=== PATIENT | male | born 1985 | race Caucasian/White ===

== ENCOUNTER 2025-04-19 16:27 | Observation (INO) ==
--- NOTE | 2025-04-19 17:09 | Emergency Department Note ---
Impression & Plan Alcohol withdrawal syndrome, SARS-CoV-2 positive, Confusion ED Provider Note Provider: Higinio Hollis MD CHIEF COMPLAINT: Concern for alcohol withdrawal HISTORY OF PRESENT ILLNESS: Patient is a 39-year-old gentleman denies other medical history presenting here from the [facility] usp center evidently in custody there for evaluation with concerns for possible alcohol withdrawal. Facility medical staff had contacted charge nurse prior to arrival reported that they are concerned the patient was of alcohol withdrawal and was acting confused. Patient evidently been evaluated at [facility] earlier and had a workup and was discharged back to them after receiving a dose of phenobarbital by report. Patient himself is not a great historian. Interview conducted with formal translation services as his primary language is [place]an. Patient states he does not have any pain. He states he was drinking alcohol yesterday. He states he has been working with a psychologist. He states he is post to work at the [employer] today. Patient denies any nausea or vomiting. Reports his medications are amoxicillin and acetaminophen. Records from the usp center indicate the patient was taken to custody 4 days ago on Saturday. He does report he drinks beers at times but denies other drugs to me. Very difficult to get a clear idea of how much alcohol he may be having and again does not seem to be giving me a clear history of his incarceration as he obviously was not drinking alcohol yesterday as he was in usp. Patient denies a known history of seizure although guards at bedside question if he may have had a seizure-like event. Charge nurse states in her discussion with the medical staff just prior to him arriving here, they stated the patient had not had any seizures. Patient does report that he had some bandaging on his left arm. No trauma reported. PAST MEDICAL HISTORY: As noted above MEDICATIONS: Patient reports that he is taken acetaminophen and amoxicillin but difficult to truly ascertain SOCIAL HISTORY: [place]an-speaking, reports alcohol use but denies drug use PHYSICAL EXAM: GENERAL: alert in no acute distress on stretcher not obvious responding external stimuli. Guards at bedside. Seems a little bit fidgety. Head: normocephalic and atraumatic EYES: No injection, discharge or icterus. PERRL, EOMI. NECK: Trachea midline. Good range of motion ENT: Mucous membranes pink and moist. LUNGS: Airway patent. No retractions. Breath sounds clear with good air entry bilaterally. HEART: Regular rate and rhythm. No chest wall tenderness ABDOMEN: Soft and non-tender, without guarding or rebound. SKIN: Acyanotic, warm, dry, without rashes EXTREMITIES: Without swelling, tenderness or deformity NEUROLOGICAL: No focal deficits moving all extremities. No aphasia. No facial droop noted. Ambulatory. EK bpm. Normal sinus rhythm. No PVC or PAC. No acute ST segment elevation or depression with a QTc of 434. CONTINUOUS CARDIAC MONITORING: was ordered and showed a heart rate of 90s to 180s bpm in normal sinus rhythm to sinus tachycardia Patient's laboratory studies and imaging reviewed. Differential includes Alcohol intoxication, toxicologic, infection, hypoglycemia, electrolyte abnormalities, cardiac sources, intracerebral event, neurologic, trauma, psychiatric, as well as other pathologies. IMPRESSION/MEDICAL DECISION MAKING: The reported wound on his left forearm appears to be the priorly bandaged IV site from earlier. This does not appear infected although I did quickly cleaned it with chlorhexidine. Did not seem a focal deficit or any significant pain. No reported episodes of seizure in discussion with patient or them prior information from usp facility. Reportedly received phenobarbital at workup in [facility]. Firefighting Equipment Specialist here working to try to obtain these records for more information. Will obtain a CT of the head as well as basic blood work including alcohol level as he does hemoglobin tremulous, somewhat hypertensive, and a little bit confused. At times during the interview he changes subject and talking about drinking yesterday when he is in custody and wanting to go fishing. I am unclear if he is truly confused or if there may be some translation issues with the formal ham clerk and his dialect. In any event we will maintain a broad workup but he does not appear meningitic or septic. Given a small Ativan to help calm him as he states he was feeling a little bit nervous. Head CT without acute findings per radiology. Blood work here without leukocytosis or severe anemia. Laboratory studies without renal dysfunction very slight transaminitis but no bilirubin elevation a potassium of 2.9. IV potassium supplementation ordered. COVID-positive incidentally. Did not see me having significant respiratory or GI symptoms. Again does not appear meningitic here. Alcohol level undetectable. Does during course of care in the ER does become more tremulous and tachycardic. He is pulling at restraints some and discussed with guards strategies to try to minimize any injury to his arms from pulling at his restraints. Given send for significant occult use in the past given IV thiamine and folic acid and IV fluid. Again probably some overlap between agitation as well as alcohol withdrawal but given additional IV Ativan and later IV Valium given his vitals and symptoms. Trying to be cautious to avoid oversedation if he did receive a barbiturate earlier although still waiting records IV fluid as well as folate and thiamine was ordered. Will bring into the hospital for further care and the hospitalist team was contacted. Did discuss with the hospitalist team if he has continued significant tremors, hypertension, and tachycardia he may need ICU level care/phenobarbital. Records later do arrived showing received 260 mg IV phenobarbital at [facility] earlier today. DIAGNOSIS: Alcohol withdrawal, COVID-19 positive DISPOSITION: Hospitalist will evaluate Critical Care I have personally spent 37 minutes of critical care time in the direct management of this patient. This includes bedside care, interpretation of diagnostic studies, and testing, discussion with consultants, patient, and other required patient management activities. These 37 minutes is in excess of all separately billable procedures. Past Med/Surg History Problem List (Updated 04/19/25 @ 19:45 by Hamilton Deluna DO) Alcohol liver damage Hypokalemia due to inadequate potassium intake Alcohol use disorder Severe alcohol withdrawal delirium Confusion (Acute) SARS-CoV-2 positive (Acute) Alcohol withdrawal syndrome (Acute) Social History Smoking Status: Never smoker Preferred Language: [place]an Feels Safe at Home: Yes Allergies Allergies Allergy/AdvReac Type Severity Reaction Status Date / Time No Known Allergies Allergy Unverified 04/19/25 19:52 Home Meds Home Medications Medication Instructions Recorded Confirmed hydroxyzine pamoate 25 mg capsule 25 mg PO DAILY 04/19/25 04/19/25 hydroxyzine pamoate 50 mg capsule 50 mg PO DAILY 04/19/25 04/19/25 lorazepam 1 mg tablet 1 mg PO BID 04/19/25 04/19/25 lorazepam 1 mg tablet 1 mg PO TID 04/19/25 04/19/25 omeprazole 20 mg capsule,delayed 20 mg PO DAILY 04/19/25 04/19/25 release Results & Data (ED) Vital Signs Vital Signs - 24 hr 04/19/25 16:28 04/19/25 17:15 04/19/25 17:29 Temperature 37.7 C H Temperature Source Oral Pulse Rate 101 H 99 H Pulse Rate [Right Finger] 107 H Respiratory Rate 16 22 Respiratory Effort / Characteristics Non-Labored Spontaneous Non-Labored Spontaneous Respiratory Depth Normal Normal Blood Pressure 160/117 H Blood Pressure [Right Arm] 164/118 H Blood Pressure Mean 131 Blood Pressure Mean [Right Arm] 133 Pulse Oximetry 99 99 Oxygen Delivery Method Room Air Room Air Oxygen Flow Rate Sepsis Recent Fever Within 48 Hours No Sepsis New/Unexplained Change in Mental Status No Sepsis Action Taken by Nursing No Action Required 04/19/25 19:00 04/19/25 19:39 04/19/25 20:28 Temperature 36.3 C L Temperature Source Axillary Pulse Rate 102 H Pulse Rate [Right Finger] 143 H 104 H Respiratory Rate 26 H 15 18 Respiratory Effort / Characteristics Non-Labored Spontaneous Non-Labored Spontaneous Respiratory Depth Normal Normal Blood Pressure 150/99 H Blood Pressure [Right Arm] 185/131 H 156/116 H Blood Pressure Mean Blood Pressure Mean [Right Arm] 149 129 Pulse Oximetry 95 100 Oxygen Delivery Method Room Air Nasal Cannula Oxygen Flow Rate 2 Sepsis Recent Fever Within 48 Hours Sepsis New/Unexplained Change in Mental Status Sepsis Action Taken by Nursing Laboratory Data 04/19/25 16:57 04/19/25 16:57 Lab Results 04/19/25 04/19/25 Range/Units 16:57 17:21 WBC 7.17 (4.8-10.8) K/ul RBC 4.22 L (4.70-6.10) M/uL Hgb 13.4 L (14.0-18.0) g/dl Hct 37.9 L (42.0-52.0) % MCV 89.8 (80.0-100.0) fL MCH 31.8 (25.0-34.0) pg MCHC 35.4 (32.0-36.0) g/dL RDW Std Deviation 42.5 (36.4-46.3) fL RDW Coeff of Mireille 12.8 (11.5-14.5) % Plt Count 248 (130-400) K/uL MPV 10.8 (9.4-12.4) fL Immature Gran % (Auto) 0.3 % Neut % (Auto) 58.6 % Lymph % (Auto) 25.9 % Mason % (Auto) 13.0 % Eos % (Auto) 1.4 % Baso % (Auto) 0.8 % Neut # (Auto) 4.20 (1.40-6.50) K/uL Lymph # (Auto) 1.86 (1.20-3.40) K/uL Mason # (Auto) 0.93 H (0.11-0.59) K/uL Eos # (Auto) 0.10 (0.00-0.50) K/uL Baso # (Auto) 0.06 (0.00-0.20) K/uL Immature Gran # (Auto) 0.02 (0.01-0.20) K/uL Sodium 139 (136-145) mmol/L Potassium 2.9 L (3.5-5.1) mmol/L Chloride 103 (98-107) mmol/L Carbon Dioxide 25 (21-32) mmol/L Anion Gap 11 (3-11) BUN 13 (6-23) mg/dl Creatinine 0.83 (0.6-1.4) mg/dl Est Cr Clr Drug Dosing 98.1 ml/min eGFR 112.76 BUN/Creatinine Ratio 15.7 (10-20) Glucose 112 H (70-99(Fasting)) mg/dl Calcium 9.3 (8.6-10.3) mg/dl Magnesium 1.8 (1.7-2.4) mg/dl Total Bilirubin 0.8 (0.2-1.0) mg/dl AST 133 H (13-39) U/L ALT 138 H (7-52) U/L Alkaline Phosphatase 86 (34-104) U/L Troponin I High Sens 8.1 (0-20) pg/ml Total Protein 8.1 (6.0-8.3) gm/dl Albumin 4.7 (3.4-5.0) gm/dl Globulin 3.4 (2.5-4.0) gm/dl Albumin/Globulin Ratio 1.4 (0.9-2) TSH 1.184 (0.300-4.500) uIu/ml Salicylates < 3.0 L (3.0-30) mg/dl Acetaminophen < 3 L (10-30) ug/ml Ethyl Alcohol mg/dL < 10.0 (<10.0) mg/dl SARS-CoV-2, RNA, NAAT POSITIVE A (NEGATIVE) Administered Medications Discontinued Medications Diazepam (Diazepam 5 Mg/Ml 10ml Vial) 10 mg IV NOW STA Stop: 04/19/25 18:54 Last Admin: 04/19/25 19:04 Dose: 10 mg Documented By: KAY Potassium Chloride (K Jeremias / Wtr) 10 meq in 100 mls @ 100 mls/hr IV ONE ONE Stop: 04/19/25 19:09 Last Admin: 04/19/25 19:04 Dose: 100 mls/hr Documented By: KAY Thiamine HCl 100 mg/ Syringe 10 mls @ 2 mls/min IV NOW STA Stop: 04/19/25 18:14 Last Admin: 04/19/25 18:49 Dose: 2 mls/min Documented By: KAY Folic Acid 1 mg/ Syringe 10 mls @ 5 mls/min IV NOW STA Stop: 04/19/25 18:11 Last Admin: 04/19/25 18:49 Dose: 5 mls/min Documented By: KAY Sodium Chloride (Nss) 1,000 mls @ 999 mls/hr IV .Q1H1M ONE Stop: 04/19/25 19:53 Last Admin: 04/19/25 19:04 Dose: 999 mls/hr Documented By: KAY Lorazepam (Lorazepam 2 Mg/1 Ml Vial) 1 mg IV NOW STA Stop: 04/19/25 17:09 Last Admin: 04/19/25 17:28 Dose: 1 mg Documented By: LYNDA Lorazepam (Lorazepam 2 Mg/1 Ml Vial) 2 mg IV NOW STA Stop: 04/19/25 18:10 Last Admin: 04/19/25 18:13 Dose: 2 mg Documented By: KAY Lorazepam (Lorazepam 2 Mg/1 Ml Vial) 2 mg IV NOW STA Stop: 04/19/25 18:34 Last Admin: 04/19/25 18:37 Dose: 2 mg Documented By: ANA PAULA Phenobarbital Sodium (Phenobarbital Sodium 65 Mg/Ml Vial) 260 mg IV NOW STA Stop: 04/19/25 19:18 Last Admin: 04/19/25 19:43 Dose: Not Given Documented By: KAY Phenobarbital Sodium (Phenobarbital Sodium 65 Mg/Ml Vial) 130 mg IV NOW STA Stop: 04/19/25 19:35 Last Admin: 04/19/25 19:39 Dose: 130 mg Documented By: KAY Potassium Chloride (Potassium Chloride Crtab 20 Meq Tabcr) 40 meq PO NOW STA Stop: 04/19/25 19:01 Last Admin: 04/19/25 19:11 Dose: Not Given Documented By: CTK Imaging Data Radiologist's Impression: Head CT 04/19/25 17:00 CT head without contrast History: Hallucinations Comparison: None Technique: Using multidetector thin collimation helical acquisition technique, axial, coronal and sagittal CT images from the skull base to the vertex were obtained without intravenous contrast. Dose reduction techniques were achieved by using automatic exposure control and/or adjustment of mA and/or kV according to patient size and/or use of iterative reconstruction technique. Findings: No intracranial hemorrhage, mass-effect, or midline shift. The ventricles are proportionate to the cerebral sulci. The oneal to white matter differentiation of the cerebral hemispheres is preserved. The basal cisterns are patent. The visualized paranasal sinuses are clear. Mastoid air cells are clear. Impression: No acute intracranial pathology. Electronically signed by Chris Curiel 04-19-2025 6:01 PM Discharge Plan Visit Data Chief Complaint: Alcohol Withdrawal Stated Complaint: ALCOHOL WITHDRAWAL ED Provider: Higinio Hollis Discharge Problem: Alcohol withdrawal syndrome, SARS-CoV-2 positive, Confusion Patient Disposition: Being Evaluated by Hospitalist Condition: Serious Discharge Instructions Interventions: ED Discharge Assessment Last Done: 04/19/25 20:34 Forms Stand Alone Forms: [facility], Suicide Prevention Resources Prescriptions Prescriptions: No Action hydroxyzine pamoate 50 mg Capsule 50 mg PO DAILY omeprazole 20 mg Capsule,Delayed Release(Dr/Ec) 20 mg PO DAILY lorazepam 1 mg Tablet 1 mg PO TID Rx Instructions: START DATE 04/19/2025 - 04/24/2025 lorazepam 1 mg Tablet 1 mg PO BID Rx Instructions: START 04/25/2025 - 04/29/2025 - NOT STARTED YET hydroxyzine pamoate 25 mg Capsule 25 mg PO DAILY Rx Instructions: ONE TIME DOSE GIVEN 04/19/2025 Referrals Referrals: PCP,NO [Physician] -
[2025-04-19] MEDS: LORazepam 2 MG/1 ML VIAL IV STA ×3 (17:28→18:37)
[2025-04-19 17:45] LABS: Basophils # (auto) 0.06 K/uL (0.00-0.20); Basophils % (auto) 0.8 %; Eosinophils % (auto) 1.4 %; Hematocrit (blood only) 37.9 % (42.0-52.0); Hemoglobin 13.4 g/dl (14.0-18.0); Immature Granulocytes # (auto) 0.02 K/uL (0.01-0.20); Immature Granulocytes % (auto) 0.3 %; Lymphocytes # (auto) 1.86 K/uL (1.20-3.40); Lymphocytes % (auto) 25.9 %; Mean Corpuscular Hemoglobin 31.8 pg (25.0-34.0); Mean Corpuscular Hgb Conc 35.4 g/dL (32.0-36.0); Mean Corpuscular Volume 89.8 fL (80.0-100.0); Mean Platelet Volume 10.8 fL (9.4-12.4); Monocytes # (auto) 0.93 K/uL (0.11-0.59); Neutrophils % (auto) 58.6 %; Platelet Count 248 K/uL (130-400); RDW Coefficient of Variation 12.8 % (11.5-14.5); RDW Standard Deviation 42.5 fL (36.4-46.3); Red Blood Count 4.22 M/uL (4.70-6.10); White Blood Count 7.17 K/ul (4.8-10.8)
--- NOTE | 2025-04-19 18:04 | CT Scan Report ---
CT head without contrast History: Hallucinations Comparison: None Technique: Using multidetector thin collimation helical acquisition technique, axial, coronal and sagittal CT images from the skull base to the vertex were obtained without intravenous contrast. Dose reduction techniques were achieved by using automatic exposure control and/or adjustment of mA and/or kV according to patient size and/or use of iterative reconstruction technique. Findings: No intracranial hemorrhage, mass-effect, or midline shift. The ventricles are proportionate to the cerebral sulci. The oneal to white matter differentiation of the cerebral hemispheres is preserved. The basal cisterns are patent. The visualized paranasal sinuses are clear. Mastoid air cells are clear. Impression: No acute intracranial pathology. Electronically signed by Chris Curiel 04-19-2025 6:01 PM
[2025-04-19 18:06] LABS: Albumin Globulin Ratio 1.4 (0.9-2); BUN Creatinine Ratio 15.7 (10-20); Bilirubin,Total 0.8 mg/dl (0.2-1.0); Calcium 9.3 mg/dl (8.6-10.3); Creatinine Clr Calc Pharmacy 98.1 ml/min; Globulin 3.4 gm/dl (2.5-4.0); Magnesium 1.8 mg/dl (1.7-2.4); Potassium 2.9 mmol/L (3.5-5.1); Total Protein 8.1 gm/dl (6.0-8.3)
[2025-04-19 18:10] LABS: Troponin I High Sensitivity 8.1 pg/ml (0-20)
[2025-04-19 18:18] LABS: Acetaminophen < 3 ug/ml (10-30); Salicylate < 3.0 mg/dl (3.0-30)
[2025-04-19 18:19] LABS: Thyroid Stimulating Hormone 1.184 uIu/ml (0.300-4.500)
[2025-04-19] MEDS: THIAMINE HCL 100 MG in SYRINGE 9 ML IV STA (18:49)
[2025-04-19] MEDS: FOLIC ACID 1 MG in SYRINGE 9.8 ML IV STA (18:49)
[2025-04-19] MEDS: SODIUM CHLORIDE 0.9% 1,000 ML IV ONE (19:04)
[2025-04-19] MEDS: diazePAM 5 MG/ML 10ML VIAL IV STA (19:04)
[2025-04-19] MEDS: POTASSIUM CHLORIDE / WTR 10 MEQ/100 ML PLCT IV ONE (19:04)
[2025-04-19] MEDS: POTASSIUM CHLORIDE CRTAB 20 MEQ TABCR PO STA (19:11)
[2025-04-19] MEDS: PHENobarbital sodium 65 MG/ML VIAL IV STA ×2 (19:39→19:43)
--- NOTE | 2025-04-19 19:41 | History & Physical Report ---
Date of Service April 19, 2025 Assessment & Plan (1) Severe alcohol withdrawal delirium: (2) Alcohol use disorder: (3) SARS-CoV-2 positive: (4) Hypokalemia due to inadequate potassium intake: (5) Alcohol liver damage: Plan Patient 39-year-old gentleman with severe alcohol withdrawal delirium with psychotic features. Patient has is extremely high risk for delirium tremors. Patient requires hospital level care and monitoring, including IV medications Admit to the ICU Patient reportedly responded well to phenobarbital [place], given additional loading dose of phenobarbital IV and as needed doses of phenobarbital if he continues with significant agitation. Start oral phenobarbital taper tomorrow Replace potassium Replace magnesium Patient does not seem to be suffering any effects of his COVID-positive serology. Not requiring oxygen, will continue to monitor for symptoms will hold on any additional treatments at this time. Suspect this is an asymptomatic case. Monitor liver functions History of Present Illness Chief Complaint: Confusion, agitation, hallucination, presumed alcohol withdrawal Primary Care Provider: [facility] Patient is a 39-year-old gentleman prisoner at [facility]. Presents to [facility] emergency room with above complaints. Reported history is that he presented to the [facility] facility on Saturday. Since that time he has become more confused and agitated and started to have hallucinations. He was seen at [facility] earlier in the day given phenobarbital. This apparently was effective and he was sent back to the facility. However at the facility again became more agitated, confused, hallucinating. His speech was unintelligible and did not make any sense. They brought the [facility] ED for evaluation at this time. In the emergency room did have some electrolyte abnormalities and evidence of some alcohol transaminase elevation. He also tested positive for COVID. Did not seem to have any symptoms related to this. He is given 5 mg of Ativan and still quite agitated and referred to our service for further evaluation. Time my evaluation the patient was pulling against all the handcuffs and foot cuffs. He was restless and writhing in the bed. It seems as though he was hallucinating. I attempted to have a conversation with him through the video usability engineer. He would not speak to the usability engineer. But the usability engineer could not understand him saying made no sense at all and he gave no understandable response to any questions and really did not answer any of the questions. Past Med/Surg History Problem List (Updated 04/19/25 @ 19:45 by Hamilton Deluna, DO) Alcohol liver damage Hypokalemia due to inadequate potassium intake Alcohol use disorder Severe alcohol withdrawal delirium Confusion (Acute) SARS-CoV-2 positive (Acute) Alcohol withdrawal syndrome (Acute) Social History Smoking Status: Never smoker Preferred Language: English Feels Safe at Home: Yes Review of Systems Review of Systems: Review of systems unable to be obtained due to the patient's current condition Physical Exam Physical Exam: Constitutional: Awake, moderate distress, diaphoretic, agitated nontoxic HEENT: Mucous membranes moist. Sclera clear Neck: Soft, no adenopathy Lungs: Decreased breath sounds, no wheezes or rails CV: S1-S2, regular, tachycardic Abdomen: Soft, nontender, nondistended Extremities: No significant edema Musculoskeletal: No significant joint tenderness Neuro: No focal deficits, moving all extremities, no facial droop Psych: Uncooperative, hallucinating, nonsensical speech, agitated and irritated Results & Data Results & Data Vital Signs (Past 12 Hours) Vital Signs Temp Pulse Pulse Resp BP BP Pulse Ox 04/19/25 19:00 143 H 26 H 185/131 H 95 04/19/25 17:29 107 H 22 164/118 H 99 04/19/25 17:15 99 H 04/19/25 16:28 37.7 C H 101 H 16 160/117 H 99 O2 Del Method 04/19/25 19:00 Room Air 04/19/25 17:29 Room Air 04/19/25 17:15 04/19/25 16:28 Room Air Diagnostic Findings Reviewed imaging, laboratory and diagnostic studies. Pertinent findings as below. Personally viewed EKG, sinus rhythm Head CT report no acute abnormalities COVID testing positive Alcohol level less than 10 Salicylate and acetaminophen negative AST 133 ALT 138 Glucose 112 Potassium 2.9 WBCs 7.1 Hemoglobin 13.4 Platelets of 248 Code Status & VTE Plan VTE Prophylaxis Plan VTE Prophylaxis will be ordered: Yes
--- NOTE | 2025-04-19 20:37 | Critical Care Consultation ---
Date of Consultation April 19, 2025 Assessment & Plan (1) Alcohol withdrawal syndrome: (2) Hypokalemia: (3) Transaminitis: (4) SARS-CoV-2 positive: Plan Reason Critically Ill: 1. Alcohol withdrawal disorder 2. Acute toxic/metabolic encephalopathy 2/2 #1 3. Hypokalemia 4. Transaminitis 2/2 ETOH intake 5. COVID-19 positive, asymptomatic Neuro - [facility] ICU: Too sedated to assess RASS GOAL 0 to -1 Phenobarbital 1st load complete. Received Ativan equivalent 7mg, will receive 12mg/kg total load unless patient is sedated at time of next dose Haloperidol, Clonidine vs. Precedex as adjunct if needed. No further benzodiazepines due to propensity to cause respiratory depression when combined with phenobarbital APAP PRN pain/fever Cardiac - Tachycardia and hypertension improving with adequate sedation MAP goal > 65mmHg LR @ 75cc/hr while not taking PO Respiratory - Continue EtCO2 SpO2 goal > 92% HOB 30-45, aspiration precautions IS/Flutter as clinically feasible GI - Diet: NPO pending nursing dysphagia screen SUP: N/A Bowel regimen: Start in AM as mentation allows RENAL/LYTES - Replete electrolytes as indicated, K infusing, recheck at 0000 Bladder scan and straight cath PRN IVF as above Maintain net even to net negative ENDO - BG 140-180 per SCCM guidelines ISS if needed while inpatient HEME - No acute concerns ID - No acute concerns Trend WBC and fever curve Culture and treat as indicated LINES/TUBES/DRAINS - PIV x2 DVT PROPHYLAXIS - Enoxaparin in AM I have personally spent 35 minutes of critical care time in the direct management of this patient. This is a life/limb threatening event. This includes time spent evaluating patient, direct bedside care, chart review, placing orders, interpretation of diagnostic studies, discussion with consultants, patient, and family members, as well as other required patient management activities. This time is exclusive of all separately billable procedures, and teaching time and separate from and in addition to any other critical care service time. Thank you for allowing us to participate in the care of this patient. Please refer to my attending physician's documentation for any further recommendations. Supervising Physician Co-Signing Physician Notes Patient separately seen and examined from [facility]. Agree with the note above. I have alcohol withdrawal scores remain low, can likely downgrade to PCU. History of Present Illness Reason for Consultation: ETOH withdrawal Requesting Physician: Regi Attending Physician: Regi History of Present Illness Mr. Kolton Juarez is a 39YOM with no known past medical history who presented to [facility] ED from [facility] due to agitation and ETOH withdrawal symptoms. On arrival to ED, patient significantly tachycardic, hypertensive, confused. Per report, prior to arrival to [facility] ED the patient was evaluated at [facility], received 260mg Phenobarbital and returned to alf facility. He was taken to [facility] ED due to ongoing symptoms like agitation, confusion, hallucinations and concern for active withdrawal. Via linen grader the ED was able to elicit some history. Patient noted he was drinking ETOH "yesterday", has been detained x3 days. Has been working with a psychologist regarding his ETOH intake. Unclear how much patient actually drinks. Received total 5mg Ativan and 10mg Valium in ED as well as 130mg Phenobarbital. Patient responded well, now sleeping/resting comfortably. Admitted to ICU for close monitoring at request of hospitalist. Patient seen in ED A03. He is slightly tachycardic, normotensive, saturating 99% on 2L NC. He is sleeping, RR is WNL. [facility] guards at bedside, state he was extremely agitated, combative prior to medications being provided. EtCO2 to be attached on arrival to ICU. ROS unable to be elicited. Allergies Allergy/AdvReac Type Severity Reaction Status Date / Time No Known Allergies Allergy Unverified 04/19/25 19:52 Home Medications Medication Instructions Recorded Confirmed Type hydroxyzine pamoate 25 mg capsule 25 mg PO DAILY 04/19/25 04/19/25 History hydroxyzine pamoate 50 mg capsule 50 mg PO DAILY 04/19/25 04/19/25 History lorazepam 1 mg tablet 1 mg PO BID 04/19/25 04/19/25 History lorazepam 1 mg tablet 1 mg PO TID 04/19/25 04/19/25 History omeprazole 20 mg capsule,delayed 20 mg PO DAILY 04/19/25 04/19/25 History release Patient History Social History Smoking Status: Never smoker Hx Alcohol Use: Yes Hx Substance Use: No (unable to answer) Preferred Language: Azeri Communication Ability: Impaired Communication Tools: Language Line Long Filler Cigar Roller Machine and Physical Gestures Long Filler Cig[employer] Roller Machine Required: Yes Current Living Situation: Other Current Living Situation Comment: Inmate at [facility] Feels Safe at Home: Yes Review of Systems Review of Systems: Unobtainable due to reduced consciousness Physical Exam Constitutional: WD/WN, vitals as above Eyes: PERRL, conjunctivae normal, anicteric sclerae Downward eye devitation ENMT: external ear and nose normal, oropharynx normal Neck: trachea midline, no thyromegaly Respiratory: normal respiratory effort, lungs clear to auscultation Cardiovascular: RRR, no murmur, no edema Gastrointestinal (Abdomen): normal bowel sounds, soft, nontender, no hepatosplenomegaly Skin: no rashes, warm and dry Neurologic: PERRL, moves all extremities spontaneously Genitourinary: Deferred Results & Data Results & Data Vital Signs (Past 12 Hours) Vital Signs Temp Pulse Pulse Resp BP BP Pulse Ox 04/19/25 20:28 36.3 C L 104 H 18 156/116 H 100 04/19/25 19:39 102 H 15 150/99 H 04/19/25 19:00 143 H 26 H 185/131 H 95 04/19/25 17:29 107 H 22 164/118 H 99 04/19/25 17:15 99 H 04/19/25 16:28 37.7 C H 101 H 16 160/117 H 99 O2 Del Method O2 Flow Rate 04/19/25 20:28 Nasal Cannula 2 04/19/25 19:39 04/19/25 19:00 Room Air 04/19/25 17:29 Room Air 04/19/25 17:15 04/19/25 16:28 Room Air Laboratory Results Reviewed Diagnostic Findings Reviewed Medications Administered See MAR Coding Level of Care Code 97757 IN/OBS CONSULT LVL 2,35M Diagnoses Alcohol withdrawal syndrome F10.939 Hypokalemia E87.6 Transaminitis R74.01 SARS-CoV-2 positive U07.1 Time Spent (min) 35
[2025-04-19] MEDS ORDERED: ONDANSETRON INJ 2 MG/ML 2 ML VIAL IV PRN (21:16)
[2025-04-19] MEDS ORDERED: PHENobarbital sodium 65 MG/ML VIAL IV PRN (21:16)
[2025-04-19] MEDS: LACTATED RINGER'S 1,000 ML IV SCH ×2 (21:35)
[2025-04-19] MEDS: MAGNESIUM SULFATE / D5W 1 GM/100 ML BAG IV SCH (21:36)
[2025-04-19] MEDS: ENOXAPARIN INJ 40 MG/0.4 ML SYR SQ SCH (22:25)
[2025-04-19] MEDS: PHENobarbital sodium 65 MG/ML VIAL IM SCH (23:12)
[2025-04-19] MEDS: MAGNESIUM SULFATE / D5W 1 GM/100 ML BAG IV ONE (23:16)
[2025-04-20 01:26] LABS: BUN Creatinine Ratio 13.2 (10-20); Calcium 8.5 mg/dl (8.6-10.3); Creatinine Clr Calc Pharmacy 107.1 ml/min; Magnesium 2.5 mg/dl (1.7-2.4); Potassium 2.9 mmol/L (3.5-5.1)
[2025-04-20] MEDS: POTASSIUM CHLORIDE / WTR 10 MEQ/100 ML PLCT IV SCH (02:05)
[2025-04-20 05:18] LABS: Hematocrit (blood only) 42.1 % (42.0-52.0); Hemoglobin 14.5 g/dl (14.0-18.0); Mean Corpuscular Hemoglobin 31.5 pg (25.0-34.0); Mean Corpuscular Hgb Conc 34.4 g/dL (32.0-36.0); Mean Corpuscular Volume 91.5 fL (80.0-100.0); Mean Platelet Volume 10.5 fL (9.4-12.4); Platelet Count 251 K/uL (130-400); RDW Standard Deviation 43.3 fL (36.4-46.3); White Blood Count 9.17 K/ul (4.8-10.8)
[2025-04-20 05:34] LABS: BUN Creatinine Ratio 11.1 (10-20); Bilirubin Direct 0.2 mg/dl (0-0.2); Bilirubin,Total 0.8 mg/dl (0.2-1.0); Calcium 9.1 mg/dl (8.6-10.3); Creatinine Clr Calc Pharmacy 100.5 ml/min; Magnesium 2.4 mg/dl (1.7-2.4); Phosphorus 3.3 mg/dl (2.5-4.9); Potassium 3.2 mmol/L (3.5-5.1); Total Protein 7.5 gm/dl (6.0-8.3)
[2025-04-20] MEDS ORDERED: PHENobarbital PO Alcohol Withdrawal PO ONE (07:00)
[2025-04-20] MEDS: cloNIDine HCL 0.1 MG TAB PO SCH (09:41)
[2025-04-20] MEDS: THIAMINE HCL 500 MG in SODIUM CHLORIDE 0.9% 50 ML IV SCH (09:41)
[2025-04-20] MEDS: FOLIC ACID 1 MG TAB PO SCH (09:41)
--- NOTE | 2025-04-20 12:52 | Hospitalist Progress Note ---
Date of Service April 20, 2025 Assessment & Plan (1) Severe alcohol withdrawal delirium: (2) Alcohol use disorder: (3) SARS-CoV-2 positive: (4) Hypokalemia due to inadequate potassium intake: (5) Alcohol liver damage: Plan Patient 39-year-old gentleman with severe alcohol withdrawal delirium with psychotic features. Patient has is extremely high risk for delirium tremors. Patient requires hospital level care and monitoring, including IV medications Patient reportedly responded well to phenobarbital [place], given additional loading dose of phenobarbital IV and as needed doses of phenobarbital if he continues with significant agitation. Start oral phenobarbital taper tomorrow and he has been tolerating it well Still has significant tremors involving the outstretched hands and also tachycardic No confusion Will get PT OT evaluation prior to discharge likely tomorrow Electrolyte imbalance Replace potassium Replace magnesium Electrolytes have been normalized COVID-19 positive Denies any symptoms and has not been requiring any oxygen to maintain saturation Patient does not seem to be suffering any effects of his COVID-positive serology. Not requiring oxygen, will continue to monitor for symptoms will hold on any additional treatments at this time. Suspect this is an asymptomatic case. Monitor liver functions Abnormal LFTs Secondary to use of alcohol Will monitor while in the hospital DVT prophylaxis Subcu Lovenox CODE STATUS Full Admission and Anticipated Discharge Date Admission Date: April 19, 2025 Subjective 04/20/2025 The patient was seen and examined in ICU Conversation was carried out with the division officer weapons department He denies any significant symptoms and wants to go home Still has tremors involving the outstretched hands and has tachycardia Review of Systems Review of Systems: All systems reviewed and are unremarkable except as noted below Physical Exam Physical Exam: Lying in bed without any acute distress but anxious Constitutional: well developed, well nourished, + ill appearing and average body habitus Eyes: PERRL, conjunctivae normal, anicteric sclerae ENMT: external ear and nose normal, oropharynx normal Neck: trachea midline, no thyromegaly Respiratory: no respiratory distress Auscultation: lungs clear to auscultation bilaterally Cardiovascular: Rate/Rhythm: regular rate, regular rhythm and + tachycardic Heart Sounds: normal S1 and normal S2; no murmur Extremities: no edema Gastrointestinal (Abdomen): Inspection/Auscultation: normal bowel sounds; abdomen not distended Percussion/Palpation: abdomen soft; abdomen nontender Musculoskeletal: no cyanosis or clubbing, extremities motor strength 5/5 Skin: no rashes, warm and dry Neurologic: normal touch/pain/proprioception and moves all extremities; no focal motor deficits significant tremors involving the outstretched hands Lymphatic: no cervical or axillary lymphadenopathy Results & Data Results & Data Vital Signs (Past 12 Hours) Vital Signs Temp Pulse Resp BP Pulse Ox O2 Del Method 04/20/25 09:24 116 H 20 97 04/20/25 09:16 163/117 H 04/20/25 09:00 36.9 C 04/20/25 08:48 105 H 21 98 04/20/25 08:03 117 H 16 100 04/20/25 07:57 Room Air 04/20/25 07:36 129/102 H 04/20/25 07:27 123 H 22 97 04/20/25 07:12 105 H 22 142/102 H 100 04/20/25 06:24 96 H 98 04/20/25 06:12 90 24 98 04/20/25 06:09 92 H 20 99 04/20/25 06:06 142/114 H 04/20/25 06:06 142/114 H 04/20/25 05:51 97 H 25 H 99 04/20/25 05:48 88 15 100 04/20/25 05:36 146/103 H 04/20/25 05:36 146/103 H 04/20/25 05:21 150/107 H 04/20/25 05:21 150/107 H 04/20/25 05:09 107 H 98 04/20/25 05:09 143/109 H 04/20/25 05:09 143/109 H 04/20/25 05:09 143/109 H 04/20/25 05:06 108 H 18 04/20/25 05:03 151/110 H 04/20/25 05:03 151/110 H 04/20/25 05:03 151/110 H 04/20/25 05:00 37.2 C 04/20/25 04:45 96 H 95 04/20/25 04:43 132/93 04/20/25 04:43 132/93 04/20/25 04:42 81 15 97 04/20/25 04:39 79 15 95 04/20/25 04:30 133/100 04/20/25 04:27 97 H 96 04/20/25 04:21 79 16 97 04/20/25 04:15 82 16 97 04/20/25 04:00 73 15 04/20/25 04:00 139/93 04/20/25 04:00 139/93 04/20/25 03:48 77 15 97 04/20/25 03:30 118/88 04/20/25 03:24 79 15 97 04/20/25 03:21 83 15 97 04/20/25 03:12 123/92 04/20/25 03:12 123/92 04/20/25 03:12 78 15 97 04/20/25 03:00 79 19 97 04/20/25 02:51 82 18 97 04/20/25 02:48 95 H 18 97 04/20/25 02:39 94 H 21 97 04/20/25 02:31 162/105 H 04/20/25 02:31 162/105 H 04/20/25 02:27 93 H 18 99 04/20/25 02:18 115 H 91 04/20/25 02:03 74 13 97 04/20/25 02:00 110/75 04/20/25 01:54 80 15 97 04/20/25 01:42 80 15 97 04/20/25 01:30 106/81 04/20/25 01:30 76 14 97 04/20/25 01:21 83 15 98 04/20/25 01:00 137/91 04/20/25 00:57 91 H 18 95 04/20/25 00:51 133/93 04/20/25 00:51 133/93 04/20/25 00:51 70 13 97 Laboratory Results Short CBC 04/19/25 04/20/25 Range/Units 16:57 04:47 WBC 7.17 9.17 (4.8-10.8) K/ul Hgb 13.4 L 14.5 (14.0-18.0) g/dl Hct 37.9 L 42.1 (42.0-52.0) % Plt Count 248 251 (130-400) K/uL BMP 04/19/25 04/20/25 04/20/25 16:57 00:25 04:47 Sodium 139 139 137 Potassium 2.9 L 2.9 L 3.2 L Chloride 103 103 101 Carbon Dioxide 25 28 29 BUN 13 10 9 Creatinine 0.83 0.76 0.81 Glucose 112 H 102 H 91 Calcium 9.3 8.5 L 9.1 Liver Function 04/19/25 04/20/25 Range/Units 16:57 04:47 Total Bilirubin 0.8 0.8 (0.2-1.0) mg/dl Direct Bilirubin 0.2 (0-0.2) mg/dl AST 133 H 132 H (13-39) U/L ALT 138 H 142 H (7-52) U/L Alkaline Phosphatase 86 80 (34-104) U/L Albumin 4.7 4.1 (3.4-5.0) gm/dl Medications Administered Current Inpatient Medications Clonidine HCl (Clonidine Hcl 0.1 Mg Tab) 0.1 mg PO TID MERYL Stop: 05/20/25 08:59 Last Admin: 04/20/25 09:41 Dose: 0.1 mg Enoxaparin Sodium (Enoxaparin Inj 40 Mg/0.4 Ml Syr) 40 mg SQ Q24H MERYL Stop: 05/19/25 21:29 Last Admin: 04/19/25 22:25 Dose: 40 mg Folic Acid (Folic Acid 1 Mg Tab) 1 mg PO QAM MERYL Stop: 05/20/25 08:59 Last Admin: 04/20/25 09:41 Dose: 1 mg Thiamine HCl 500 mg/ Sodium (Chloride) 55 mls @ 210 mls/hr IV Q8H MERYL Stop: 04/21/25 01:46 Last Infusion: 04/20/25 10:04 Dose: Infused Ondansetron HCl (Ondansetron Inj 2 Mg/Ml 2 Ml Vial) 4 mg IV Q6H PRN PRN Reason: Nausea Stop: 05/19/25 21:15 Phenobarbital (Phenobarbital 30 Mg Tab) 60 mg PO Q12H MERYL Stop: 04/21/25 02:16 Phenobarbital (Phenobarbital 30 Mg Tab) 30 mg PO Q12H MERYL Stop: 04/22/25 02:16 Phenobarbital (Phenobarbital 30 Mg Tab) 30 mg PO Q24H MERYL Stop: 04/23/25 02:16 Phenobarbital Sodium (Phenobarbital Sodium 65 Mg/Ml Vial) 65 mg IV Q15M PRN PRN Reason: AWSS greater than 8 Thiamine HCl (Thiamine Hcl 100 Mg Tab) 100 mg PO DAILY MERYL Stop: 05/21/25 08:59
[2025-04-20] MEDS: amLODIPine BESYLATE 5 MG TAB PO ONE (13:18)
[2025-04-20] MEDS ORDERED: PHENobarbitaL 30 MG TAB PO SCH (13:30)
[2025-04-20] MEDS: PHENobarbitaL 30 MG TAB PO SCH (13:31)
[2025-04-20 13:56] LABS: Appearance Urine Clear (Clear); Bilirubin Urine Negative (Negative); Blood Urine Negative (Negative); Color Urine Yellow; Glucose Urine UA Negative (Negative); Ketones Urine Negative (Negative); Leukocyte Esterase Urine Negative (Negative); Nitrite Urine Negative (Negative); Protein Urine Negative (Negative); Specific Gravity Urine 1.003 (1.000-1.030); Urobilinogen Urine Negative (Negative)
[2025-04-20 14:21] LABS: Amphetamines+Metham, Urine Neg (Neg); Barbiturates, Urine Pos (Neg); Benzodiazepine, Urine Neg (Neg); Cocaine, Urine Neg (Neg); Fentanyl, Urine Neg (Neg); MDMA (Ecstacy), Urine Neg (Neg); Marijuana, Urine Neg (Neg); Methadone, Urine Neg (Neg); Opiate, Urine Neg (Neg); Phencyclidine, Urine Neg (Neg)
--- NOTE | 2025-04-20 22:41 | Electrocardiogram Report ---
Test Reason : Blood Pressure : */* mmHG Vent. Rate : 97 BPM Atrial Rate : 97 BPM P-R Int : 168 ms QRS Dur : 78 ms QT Int : 342 ms P-R-T Axes : 69 56 35 degrees QTcB Int : 434 ms Normal sinus rhythm Normal ECG No previous ECGs available Confirmed by Maikel Nickerson ([id number]) on 04/20/2025 10:41:20 PM Referred By: Confirmed By: Maikel Nickerson
[2025-04-21 06:04] LABS: Basophils # (auto) 0.05 K/uL (0.00-0.20); Basophils % (auto) 0.8 %; Eosinophils # (auto) 0.23 K/uL (0.00-0.50); Eosinophils % (auto) 3.6 %; Hemoglobin 13.5 g/dl (14.0-18.0); Immature Granulocytes # (auto) 0.02 K/uL (0.01-0.20); Immature Granulocytes % (auto) 0.3 %; Lymphocytes # (auto) 1.43 K/uL (1.20-3.40); Lymphocytes % (auto) 22.3 %; Mean Corpuscular Hemoglobin 31.6 pg (25.0-34.0); Mean Corpuscular Hgb Conc 34.6 g/dL (32.0-36.0); Mean Corpuscular Volume 91.3 fL (80.0-100.0); Mean Platelet Volume 10.8 fL (9.4-12.4); Monocytes % (auto) 12.5 %; Neutrophils # (auto) 3.88 K/uL (1.40-6.50); Neutrophils % (auto) 60.5 %; Platelet Count 242 K/uL (130-400); RDW Coefficient of Variation 12.9 % (11.5-14.5); Red Blood Count 4.27 M/uL (4.70-6.10); White Blood Count 6.41 K/ul (4.8-10.8)
[2025-04-21 06:14] LABS: Albumin Globulin Ratio 1.3 (0.9-2); BUN Creatinine Ratio 10.6 (10-20); Bilirubin,Total 0.7 mg/dl (0.2-1.0); Calcium 8.8 mg/dl (8.6-10.3); Creatinine Clr Calc Pharmacy 95.8 ml/min; Globulin 3.1 gm/dl (2.5-4.0); Magnesium 2.2 mg/dl (1.7-2.4); Phosphorus 3.6 mg/dl (2.5-4.9); Potassium 3.5 mmol/L (3.5-5.1); Total Protein 7.2 gm/dl (6.0-8.3)
[2025-04-21] MEDS: POTASSIUM CHLORIDE CRTAB 20 MEQ TABCR PO STA (09:03)
[2025-04-21] MEDS: THIAMINE HCL 100 MG TAB PO SCH (09:04)
--- NOTE | 2025-04-21 11:05 | Hospitalist Progress Note ---
Date of Service April 21, 2025 Assessment & Plan (1) Severe alcohol withdrawal delirium: (2) Alcohol use disorder: (3) SARS-CoV-2 positive: (4) Hypokalemia due to inadequate potassium intake: (5) Alcohol liver damage: Plan Patient 39-year-old gentleman with severe alcohol withdrawal delirium with psychotic features. Patient has is extremely high risk for delirium tremors. Patient requires hospital level care and monitoring, including IV medications Patient reportedly responded well to phenobarbital [place], given additional loading dose of phenobarbital IV and as needed doses of phenobarbital if he continues with significant agitation. Start oral phenobarbital taper tomorrow and he has been tolerating it well Still has significant tremors involving the outstretched hands and also tachycardic No confusion Will get PT OT evaluation prior to discharge likely tomorrow He has been ambulating in the room without any difficulties Tremors of the outstretched hands are improved He will be discharged this afternoon He was strongly advised to quit drinking Electrolyte imbalance Replace potassium Replace magnesium Electrolytes have been normalized COVID-19 positive Denies any symptoms and has not been requiring any oxygen to maintain saturation Patient does not seem to be suffering any effects of his COVID-positive serology. Not requiring oxygen, will continue to monitor for symptoms will hold on any additional treatments at this time. Suspect this is an asymptomatic case. Monitor liver functions- liver functions are improving Abnormal LFTs Secondary to use of alcohol Will monitor while in the hospital DVT prophylaxis Subcu Lovenox CODE STATUS Full Admission and Anticipated Discharge Date Admission Date: April 19, 2025 Subjective 04/20/2025 The patient was seen and examined in ICU Conversation was carried out with the java lead architect He denies any significant symptoms and wants to go home Still has tremors involving the outstretched hands and has tachycardia 04/21/2025 The patient was seen and examined in telemetry unit Conversation was carried out with the help of java lead architect He has been feeling much better Denies any significant symptoms and the tremors are minimal Review of Systems Review of Systems: All systems reviewed and are unremarkable except as noted below Physical Exam Physical Exam: Lying in bed without any acute distress but anxious Constitutional: well developed, well nourished, + ill appearing and average body habitus Eyes: PERRL, conjunctivae normal, anicteric sclerae ENMT: external ear and nose normal, oropharynx normal Neck: trachea midline, no thyromegaly Respiratory: no respiratory distress Auscultation: lungs clear to auscultation bilaterally Cardiovascular: Rate/Rhythm: regular rate, regular rhythm and + tachycardic Heart Sounds: normal S1 and normal S2; no murmur Extremities: no edema Gastrointestinal (Abdomen): Inspection/Auscultation: normal bowel sounds; abdomen not distended Percussion/Palpation: abdomen soft; abdomen nontender Musculoskeletal: no cyanosis or clubbing, extremities motor strength 5/5 Skin: no rashes, warm and dry Neurologic: normal touch/pain/proprioception and moves all extremities; no focal motor deficits Lymphatic: no cervical or axillary lymphadenopathy Results & Data Results & Data Vital Signs (Past 12 Hours) Vital Signs Temp Pulse Resp BP Pulse Ox O2 Del Method 04/21/25 08:04 36.9 C 89 16 114/92 96 Room Air 04/21/25 03:58 36.9 C 80 15 110/76 99 Room Air 04/20/25 23:10 36.8 C 89 14 114/80 99 Room Air Laboratory Results Short CBC 04/21/25 Range/Units 05:29 WBC 6.41 (4.8-10.8) K/ul Hgb 13.5 L (14.0-18.0) g/dl Hct 39.0 L (42.0-52.0) % Plt Count 242 (130-400) K/uL BMP 04/21/25 05:29 Sodium 136 Potassium 3.5 Chloride 100 Carbon Dioxide 29 BUN 9 Creatinine 0.85 Glucose 100 H Calcium 8.8 Liver Function 04/21/25 Range/Units 05:29 Total Bilirubin 0.7 (0.2-1.0) mg/dl AST 69 H (13-39) U/L ALT 105 H (7-52) U/L Alkaline Phosphatase 70 (34-104) U/L Albumin 4.1 (3.4-5.0) gm/dl Urine 04/20/25 Range/Units 13:15 Urine Color Yellow Urine Appearance Clear (Clear) Urine pH 7.0 (4.5-7.5) Ur Specific [place] 1.003 (1.000-1.030) Urine Protein Negative (Negative) Urine Glucose (UA) Negative (Negative) Medications Administered Current Inpatient Medications Clonidine HCl (Clonidine Hcl 0.1 Mg Tab) 0.1 mg PO TID MERYL Stop: 05/20/25 08:59 Last Admin: 04/21/25 09:09 Dose: 0.1 mg Enoxaparin Sodium (Enoxaparin Inj 40 Mg/0.4 Ml Syr) 40 mg SQ Q24H MERYL Stop: 05/19/25 21:29 Last Admin: 04/20/25 20:45 Dose: 40 mg Folic Acid (Folic Acid 1 Mg Tab) 1 mg PO QAM MERYL Stop: 05/20/25 08:59 Last Admin: 04/21/25 09:04 Dose: 1 mg Ondansetron HCl (Ondansetron Inj 2 Mg/Ml 2 Ml Vial) 4 mg IV Q6H PRN PRN Reason: Nausea Stop: 05/19/25 21:15 Phenobarbital (Phenobarbital 30 Mg Tab) 30 mg PO Q12H [facility] Stop: 04/22/25 02:16 Phenobarbital (Phenobarbital 30 Mg Tab) 30 mg PO Q24H MERYL Stop: 04/23/25 02:16 Phenobarbital Sodium (Phenobarbital Sodium 65 Mg/Ml Vial) 65 mg IV Q15M PRN PRN Reason: AWSS greater than 8 Thiamine HCl (Thiamine Hcl 100 Mg Tab) 100 mg PO DAILY [facility] Stop: 05/21/25 08:59 Last Admin: 04/21/25 09:04 Dose: 100 mg
[2025-04-21 11:12] VITALS: BP 95/72; PULSE 91; RESP 20; TEMP 98.6; O2SAT 97
[2025-04-21] MEDS ORDERED: PHENobarbitaL 30 MG TAB PO SCH ×2 (13:30→14:15)
--- NOTE | 2025-04-22 07:15 | Discharge Summary ---
Date of Service April 22, 2025 Admission HPI Per Admitting Provider Patient is a 39-year-old gentleman prisoner at [facility]. Presents to [facility] emergency room with above complaints. Reported history is that he presented to the [facility] facility on Saturday. Since that time he has become more confused and agitated and started to have hallucinations. He was seen at [facility] earlier in the day given phenobarbital. This apparently was effective and he was sent back to the facility. However at the facility again became more agitated, confused, hallucinating. His speech was unintelligible and did not make any sense. They brought the [facility] ED for evaluation at this time. In the emergency room did have some electrolyte abnormalities and evidence of some alcohol transaminase elevation. He also tested positive for COVID. Did not seem to have any symptoms related to this. He is given 5 mg of Ativan and still quite agitated and referred to our service for further evaluation. Time my evaluation the patient was pulling against all the handcuffs and foot cuffs. He was restless and writhing in the bed. It seems as though he was hallucinating. I attempted to have a conversation with him through the video experimental welder. He would not speak to the experimental welder. But the experimental welder could not understand him saying made no sense at all and he gave no understandable response to any questions and really did not answer any of the questions. Admission Exam Per Admitting Provider Physical Exam: Constitutional: Awake, moderate distress, diaphoretic, agitated nontoxic HEENT: Mucous membranes moist. Sclera clear Neck: Soft, no adenopathy Lungs: Decreased breath sounds, no wheezes or rails CV: S1-S2, regular, tachycardic Abdomen: Soft, nontender, nondistended Extremities: No significant edema Musculoskeletal: No significant joint tenderness Neuro: No focal deficits, moving all extremities, no facial droop Psych: Uncooperative, hallucinating, nonsensical speech, agitated and irritated Principal Diagnosis Alcohol use disorder, alcohol withdrawal symptoms, COVID-19 virus infection- asymptomatic Discharge Exam Lying in bed without any acute distress but anxious Constitutional well developed, well nourished, + ill appearing and average body habitus Eyes PERRL, conjunctivae normal, anicteric sclerae ENMT external ear and nose normal, oropharynx normal Neck trachea midline, no thyromegaly Respiratory no respiratory distress Auscultation: lungs clear to auscultation bilaterally Cardiovascular Rate/Rhythm: regular rate, regular rhythm and + tachycardic Heart Sounds: normal S1 and normal S2; no murmur Extremities: no edema Gastrointestinal (Abdomen) Inspection/Auscultation: normal bowel sounds; abdomen not distended Percussion/Palpation: abdomen soft; abdomen nontender Musculoskeletal no cyanosis or clubbing, extremities motor strength 5/5 Skin no rashes, warm and dry Neurologic normal touch/pain/proprioception and moves all extremities; no focal motor deficits Lymphatic no cervical or axillary lymphadenopathy Discharge Data Allergies Allergy/AdvReac Type Severity Reaction Status Date / Time No Known Allergies Allergy Unverified 04/19/25 19:52 Consultations 04/19/25 18:59 ED Decision to Admit Stat 04/19/25 21:16 Consult Cigarette Maker Routine Ordered Studies 04/19/25 17:00 CT head/brain wo con Stat Hospital Course (1) Severe alcohol withdrawal delirium: (2) Alcohol use disorder: (3) SARS-CoV-2 positive: (4) Hypokalemia due to inadequate potassium intake: (5) Alcohol liver damage: Plan Patient 39-year-old gentleman with severe alcohol withdrawal delirium with psychotic features. Patient has is extremely high risk for delirium tremors. Patient requires hospital level care and monitoring, including IV medications Patient reportedly responded well to phenobarbital [place], given additional loading dose of phenobarbital IV and as needed doses of phenobarbital if he continues with significant agitation. Start oral phenobarbital taper tomorrow and he has been tolerating it well Still has significant tremors involving the outstretched hands and also tachycardic No confusion Will get PT OT evaluation prior to discharge likely tomorrow He has been ambulating in the room without any difficulties Tremors of the outstretched hands are improved He will be discharged this afternoon He was strongly advised to quit drinking Electrolyte imbalance Replace potassium Replace magnesium Electrolytes have been normalized COVID-19 positive Denies any symptoms and has not been requiring any oxygen to maintain saturation Patient does not seem to be suffering any effects of his COVID-positive serology. Not requiring oxygen, will continue to monitor for symptoms will hold on any additional treatments at this time. Suspect this is an asymptomatic case. Monitor liver functions- liver functions are improving Abnormal LFTs Secondary to use of alcohol Will monitor while in the hospital DVT prophylaxis Subcu Lovenox CODE STATUS Full Total Time Total Time Spent Total Time Spent (In Minutes): 35 Minutes Discharge Plan Discharge Items Patient Disposition: Home - Self-Care Reason For Visit: ALCOHOL WITHDRAWAL Discharge Diagnosis: Alcohol use disorder, alcohol withdrawal symptoms, COVID-19 virus infection- asymptomatic Condition on Discharge: Good Activity: Resume your previous activity Non-emergency contact: Primary Care Provider Call non-emergency contact if: you have any medication questions and your symptoms worsen Follow-up/Referrals: [facility] [Primary Care Provider] - Diet: Regular Addtl Attending Provider Instructions: Please take precautions to avoid falls Strongly advised to quit drinking Take your medications as advised Please use mask for the next 8 days even though you are not having any symptoms of COVID-19 virus infection Pending Studies at Discharge: Yes Studies:: urine tox screen Stand-Alone Forms: My [employer], Smoking Cessation Medications and DC Order Prescriptions: New phenobarbital 30 mg Tablet 30 mg PO UD Qty: 3 0RF Rx Instructions: 1 tab twice tomorrow and next tab in the morning thiamine HCl (vitamin B1) 100 mg Tablet 100 mg PO DAILY Qty: 30 0RF folic acid 1 mg Tablet 1 mg PO QAM Qty: 30 0RF Continued hydroxyzine pamoate 50 mg Capsule 50 mg PO DAILY omeprazole 20 mg Capsule,Delayed Release(Dr/Ec) 20 mg PO DAILY hydroxyzine pamoate 25 mg Capsule 25 mg PO DAILY Rx Instructions: ONE TIME DOSE GIVEN 04/19/2025 Discontinued lorazepam 1 mg Tablet 1 mg PO TID Rx Instructions: START DATE 04/19/2025 - 04/24/2025 lorazepam 1 mg Tablet 1 mg PO BID Rx Instructions: START 04/25/2025 - 04/29/2025 - NOT STARTED YET Discharge Orders: Discharge Order (Routine); Ordered 04/21/25 Ordered By: Emiliano Hugo Admission Data Admit Date/Time: 04/19/25 19:33 Attending Provider: Emiliano Hugo Admit Provider: Hamilton Deluna [facility] Other Providers: Hamilton Deluna; Jordon Molina Other Interventions: Discharge Summary Assessment (RN) Last Done: 04/21/25 13:06
[2025-04-23] MEDS ORDERED: PHENobarbitaL 30 MG TAB PO SCH ×2 (01:30→02:15)
[2025-04-24 10:40] LABS: Amobarbital, Urine Conf NEGATIVE ng/mL (<100); Butalbital, Urine NEGATIVE ng/mL (<100); Pentobarbital, Urine Conf NEGATIVE ng/mL (<100); Phenobarbital, Urine >5000 ng/mL (<100); Secobarbital, Urine Conf NEGATIVE ng/mL (<100)
== END 2025-04-21 13:55 | disposition home or self-care (01) | DRG 896 ==
LOC: ED 16:27 → INTOOBSV 19:33 → SUATTDRO 19:33 → 1E 19:33 → 2E 04-20 18:10